=== PATIENT | female | born 1980 | race Caucasian/White ===

== ENCOUNTER 2025-01-06 04:32 | Emergency (ER) | payer MEDICAID ==
[~2025-01-06] VITALS: Ht 157.5 cm; Wt 61.3 kg
[~2025-01-06 04:32] MED LIST: CLIN-26 PO
[2025-01-06 04:35] VITALS: TEMP 98.4
[2025-01-06] MEDS: metoclopramide 5 mg/ml inj IV ONE (05:32)
[2025-01-06] MEDS: ondansetron/PF 4mg/2ml inj IV ONE (05:32)
[2025-01-06] MEDS: LORazepam 2 mg/ml vial IV ONE (05:33)
[2025-01-06] MEDS: normal saline 1000ML IV soln IVB ONE (05:40)
[2025-01-06 05:54] LABS: BASOPHILS # (AUTO) 0.1 X10'3 (0-0.2); BASOPHILS % (AUTO) 0.4 % (0-1); EOSINOPHILS # (AUTO) 0.1 X10'3 (0-0.9); EOSINOPHILS % (AUTO) 0.4 % (0-6); HEMATOCRIT 43.6 % (35.0-45.0); HEMOGLOBIN 14.6 g/dl (12.0-16.0); LYMPHOCYTES # (AUTO) 1.3 X10'3 (1.1-4.8); LYMPHOCYTES % (AUTO) 8.3 % (21-51); MEAN CORPUSCULAR HGB CONC 33.5 g/dL (33.0-36.5); MEAN CORPUSCULAR VOLUME 89.6 FL (78-98); MEAN PLATELET VOLUME 8.3 FL (7.4-10.4); MONOCYTES # (AUTO) 1.1 X10'3 (0-0.9); MONOCYTES % (AUTO) 6.9 % (2-12); NEUTROPHILS # (AUTO) 12.8 X10'3 (1.8-7.7); PLATELET COUNT 379 X10'3 (140-440); RED BLOOD COUNT 4.87 X10'6 (4.20-5.60); RED CELL DISTRIBUTION WIDTH 14.2 % (11.5-14.5); WHITE BLOOD COUNT 15.2 X10'3 (4.5-11.0)
[2025-01-06 06:11] LABS: ALBUMIN 4.6 G/DL (3.4-5.0); ANION GAP 18 (8-16); BLOOD UREA NITROGEN 20 MG/DL (7-18); BUN/CREATININE RATIO 18.7 (10.0-20.0); CALCIUM 9.7 MG/DL (8.5-10.1); CHLORIDE 102 MMOL/L (99-107); CREATININE 1.07 MG/DL (0.40-0.90); ETHANOL < 10 MG/DL (<10); GLUCOSE 206 MG/DL (70-104); MAGNESIUM 1.6 MG/DL (1.5-2.4); POTASSIUM 3.2 MMOL/L (3.5-5.1); PRO BRAIN NATRIURETIC PEPTIDE 107 PG/ML (0-125); SODIUM 139 MMOL/L (135-145); TOTAL CARBON DIOXIDE 19.1 MMOL/L (24-32); eCRCL 53 ML/MIN; eGFR 55 ML/MIN
[2025-01-06] MEDS: pantoprazole 40 MG vial IV ONE (06:14)
[2025-01-06 06:34] VITALS: BP 126/71; PULSE 84; RESP 18; O2SAT 99
[2025-01-06 07:41] LABS: URINE HCG NEGATIVE (NEG)
[2025-01-06 07:49] LABS: URINE AMPHETAMINE SCREEN NEGATIVE (Neg); URINE BARBITUATE SCREEN NEGATIVE (Neg); URINE BENZODIAZEPINES SCREEN NEGATIVE (Neg); URINE METHADONE SCREEN NEGATIVE (Neg)
[2025-01-06 07:50] LABS: URINE CANNABINOID SCREEN POSITIVE (Neg); URINE COCAINE SCREEN NEGATIVE (Neg); URINE OPIATE SCREEN NEGATIVE (Neg); URINE PHENCYCLIDINE SCREEN NEGATIVE (Neg)
[2025-01-06 08:23] LABS: BILIRUBIN,URINE NEGATIVE (Neg); CLARITY,URINE CLEAR (Clear); COLOR,URINE YELLOW (Yellow); GLUCOSE, URINE NEGATIVE (Neg); KETONES,URINE 40 mg/dl (Neg); LEUKOCYTE ESTERASE ,URINE NEGATIVE (Neg); NITRITES, URINE NEGATIVE (Neg); OCCULT BLOOD,URINE NEGATIVE (Neg); PH,URINE 5.5 (4.8-8.0); PROTEIN,URINE NEGATIVE (Neg); UROBILINOGEN,URINE 0.2 E.U/dL (0.2-1.0)
[2025-01-06 08:32] LABS: UA COLLECTION TYPE NON-SPECIFIED
[2025-01-06] MEDS ORDERED: ONDA-243 PO (08:44)
[2025-01-06] MEDS ORDERED: HYDR-3686 PO (08:44)
== END 2025-01-06 09:27 | disposition home or self-care (01) ==
LOC: ER 04:32
DX: F41.9 Anxiety disorder, unspecified (principal); R19.7 Diarrhea, unspecified; R11.2 Nausea with vomiting, unspecified; R07.89 Other chest pain; Z88.5 Allergy status to narcotic agent; Z79.899 Other long term (current) drug therapy
CPT/HCPCS: 36415; 71045; 80048; 80305; 80320; 81003; 81025; 83735; 83880; 84484; 85025; 93005; 96365; 96366; 96375; 99285; J2060; J2405; J2470; J2765; J7030; 96361

== ENCOUNTER 2025-01-20 23:55 | Emergency (ER) | payer MEDICAID ==
[~2025-01-20] VITALS: Ht 157.5 cm; Wt 61.1 kg
[~2025-01-20 23:55] MED LIST changes: +ONDA-243 PO
[2025-01-21 00:38] LABS: BASOPHILS # (AUTO) 0.1 X10'3 (0-0.2); BASOPHILS % (AUTO) 0.7 % (0-1); EOSINOPHILS # (AUTO) 0.1 X10'3 (0-0.9); EOSINOPHILS % (AUTO) 0.8 % (0-6); HEMATOCRIT 39.6 % (35.0-45.0); HEMOGLOBIN 13.3 g/dl (12.0-16.0); LYMPHOCYTES # (AUTO) 1.7 X10'3 (1.1-4.8); LYMPHOCYTES % (AUTO) 14.4 % (21-51); MEAN CORPUSCULAR HEMOGLOBIN 30.1 PG (27.0-31.0); MEAN CORPUSCULAR HGB CONC 33.5 g/dL (33.0-36.5); MEAN CORPUSCULAR VOLUME 89.8 FL (78-98); MONOCYTES # (AUTO) 0.6 X10'3 (0-0.9); MONOCYTES % (AUTO) 4.7 % (2-12); NEUTROPHILS # (AUTO) 9.4 X10'3 (1.8-7.7); NEUTROPHILS % (AUTO) 79.4 % (42-75); PLATELET COUNT 396 X10'3 (140-440); RED BLOOD COUNT 4.41 X10'6 (4.20-5.60); RED CELL DISTRIBUTION WIDTH 14.4 % (11.5-14.5); WHITE BLOOD COUNT 11.8 X10'3 (4.5-11.0)
[2025-01-21 00:51] LABS: ALANINE AMINOTRANSFERASE 23 U/L (12-78); ALBUMIN 4.5 G/DL (3.4-5.0); ALBUMIN/GLOBULIN RATIO 1.1 (1.1-1.5); ALKALINE PHOSPHATASE 52 IU/L (46-116); ANION GAP 16 (8-16); ASPARTATE AMINO TRANSFERASE 18 U/L (10-37); BILIRUBIN,TOTAL 0.4 MG/DL (0.1-1.0); BLOOD UREA NITROGEN 27 MG/DL (7-18); BUN/CREATININE RATIO 25.5 (10.0-20.0); CALCIUM 9.4 MG/DL (8.5-10.1); CHLORIDE 102 MMOL/L (99-107); CREATININE 1.06 MG/DL (0.40-0.90); GLUCOSE 161 MG/DL (70-104); LIPASE 54 U/L (16-77); SODIUM 139 MMOL/L (135-145); TOTAL CARBON DIOXIDE 20.7 MMOL/L (24-32); TOTAL PROTEIN 8.6 G/DL (6.4-8.2); eCRCL 53 ML/MIN; eGFR 56 ML/MIN
[2025-01-21 01:03] LABS: POTASSIUM 2.9 MMOL/L (3.5-5.1)
[2025-01-21] MEDS: metoclopramide 5 mg/ml inj IV ONE (01:15)
[2025-01-21] MEDS: ondansetron/PF 4mg/2ml inj IV ONE (01:15)
[2025-01-21] MEDS: LORazepam 2 mg/ml vial IV ONE (01:25)
[2025-01-21] MEDS: midazolam 1 mg/ML 2ml injection IV ONE (01:48)
[2025-01-21 02:11] LABS: PREOP HCG, QL SERUM NEGATIVE (NEGATIVE)
[2025-01-21] MEDS: normal saline 1000ml 1,000 ML IV ONE ×2 (02:11)
[2025-01-21 02:14] VITALS: TEMP 97.5
[2025-01-21] MEDS: POTASSIUM BICARB 20meq eff tab 20 MEQ TABLET.EFF PO ONE (02:22)
[2025-01-21] MEDS ORDERED: PROM25SU9 RC (02:40)
[2025-01-21] MEDS ORDERED: POTA-207 PO (02:41)
[2025-01-21] MEDS: proCHLORperazine 10 MG/2 ml inj IV ONE (02:59)
[2025-01-21 03:46] VITALS: BP 99/60; PULSE 98; RESP 12; O2SAT 100
== END 2025-01-21 03:48 | disposition home or self-care (01) ==
LOC: ER 23:56
DX: R11.2 Nausea with vomiting, unspecified (principal); E87.6 Hypokalemia; F41.9 Anxiety disorder, unspecified; Z88.5 Allergy status to narcotic agent
CPT/HCPCS: 36415; 80053; 83690; 84703; 85025; 96374; 96375; 99284; J0780; J2250; J2405; J2765; J7030

== ENCOUNTER 2025-05-26 16:09 | Outpatient (CLI) | payer MEDICAID ==
[~2025-05-26 16:09] MED LIST changes: +PROM25SU9 RC
--- NOTE | 2025-05-26 20:26 | RADIOLOGY REPORT ---
Indication: PERIPHERAL POLYNEUROPATHY Technique: DI FOOT, COMPLETE (3VW MIN)FOOT CPLT Comparison: None FINDINGS/IMPRESSION: No radiographic evidence for acute fracture or dislocation. No significant soft tissue edema. No rad iopaque foreign body. Mild degenerative changes of the 1st MTP joint, PIP and D IP joints.
--- NOTE | 2025-05-26 20:27 | RADIOLOGY REPORT ---
Indication: PERIPHERAL POLYNEUROPATHY Technique: DI FOOT, COMPLETE (3VW MIN)FOOT CPLT Comparison: None FINDINGS/IMPRESSION: No radiographic evidence for acute fracture or dislocation. No significant soft tissue edema. No rad iopaque foreign body. Mild degenerative changes 1st MTP joint. Mild hallux valgus. Mild degenerative changes PIP and DIP joints.
== END 2025-05-26 23:59 | disposition home or self-care (01) ==
LOC: RAD 16:09
PROVIDERS: ATTEND Family Medicine
DX: M19.071 Primary osteoarthritis, right ankle and foot (principal); G62.9 Polyneuropathy, unspecified; M19.072 Primary osteoarthritis, left ankle and foot; M20.12 Hallux valgus (acquired), left foot; M20.11 Hallux valgus (acquired), right foot; R60.0 Localized edema
CPT/HCPCS: 73630

== ENCOUNTER 2025-07-19 10:51 | Emergency (ER) | payer MEDICAID ==
[~2025-07-19] VITALS: Ht 157.5 cm; Wt 59.1 kg
[2025-07-19 10:57] VITALS: BP 104/61; PULSE 77; RESP 18; TEMP 97.6; O2SAT 100
== END 2025-07-19 16:04 | disposition left against medical advice (07) ==
LOC: ER 10:51
DX: G43.909 Migraine, unspecified, not intractable, without status migrainosus (principal); Z88.8 Allergy status to other drugs, medicaments and biological substances; Z53.21 Procedure and treatment not carried out due to patient leaving prior to being seen by health care provider